=== PATIENT | female | born 1960 | race Caucasian/White ===

== ENCOUNTER 2016-02-23 18:51 | Emergency (ER) | payer OTHER ==
[~2016-02-23] VITALS: Ht 172.7 cm; Wt 136.1 kg
[~2016-02-23 18:51] MED LIST: ADVIL200 MG PO; ALLOPURINOL100 MG PO; AMARYL4 MG PO; AMITRIPTYLINE100 M1 PO; AMOXICILLIN500 M3 PO; BC1 POW PO; BUPROPION HCL150 M2 PO; BUPROPION HYDR150 M1 PO; BUPROPION HYDR300 M1 PO; CIPRO500 M1 PO; FLEXERIL10 MG PO; GABAPENTIN300 MG PO; GLUMETZA1000 MG PO; HUMALOG100 U/ML SC; HYDROCODON-ACE1 EAC2 PO; HYDROCODONE/ACE1 TA1 PO; LANTUS SOLOS100 U/ML SC; LANTUS100 UNIT/1 SC; LEVOTHYROXINE0.05 M1 PO; LEVOTHYROXINE75 MCG PO; LISINOPRIL AND1 TA1 PO; LORAZEPAM2 MG PO; MOXIFLOXACIN H400 M1 PO; PRAVASTATIN SOD40 MG PO; TAMIFLU 75MG75 MG PO; VITAMIN D250000 UNIT PO; WELLBUTRIN XL300 M2 PO
[2016-02-23 18:57] VITALS: BP 145/74
--- NOTE | 2016-02-23 19:46 | ED UPPER/LOWER EXTREMITY COMPL ---
History of Present Illness General Chief Complaint: Lower Extremity Injury Stated Complaint: SENT IN BY LARA TO HAVE CAST CUT OFF Source: patient, old records Exam Limitations: no limitations Vital Signs & Intake/Output Vital Signs & Intake/Output Vital Signs Date Time Temp Pulse Resp B/P Pulse O2 O2 Flow FiO2 Ox Delivery Rate 02/22 1857 97.2 80 18 145/74 97 Room Air Room Air Allergies Coded Allergies: latex (Mild, RASH 05/30/15) Reconcile Medications Allopurinol 100 MG TAB 1 TAB PO DAILY GOUT (Reported) Amitriptyline Hydrochloride (Amitriptyline HCl) 100 MG TAB 1 TAB PO AT BEDTIME PRN SLEEP (Reported) Bupropion HCl (Wellbutrin XL) 300 MG TAB.ER.24H 1 TAB PO DAILY DEPRESSION ( Reported) Ergocalciferol (Vitamin D2) (Vitamin D2) 50,000 UNIT CAPSULE 1 CAP PO Q10D SUPPLEMENT (Reported) Gabapentin 300 MG CAPSULE 2 CAP PO AT BEDTIME NEUROPAHY (Reported) Glimepiride (Amaryl) 4 MG TAB 1 TAB PO BID DIABETES (Reported) Hydrocodone/Acetaminophen (Hydrocodon-Acetaminophen 5-325) 5 MG-325 MG TABLET 1-2 TAB PO Q4-6 PRN PRN pain Insulin Lispro, Recombinant (Humalog) 100 U/ML JB DIABETES (Reported) Insulin-Lantus (Lantus) 100 UNIT/ML VIAL 45 UNITS SC BID DM (Reported) Levothyroxine Sodium 75 MCG TABLET 1 TAB PO DAILY THYROID (Reported) LISINOPRIL/HYDROCHLOROTHIAZIDE (Lisinopril-Hctz 20-12.5 MG Tab) 1 TAB TAB 1 TAB PO DAILY HIGH BLOOD PRESSURE (Reported) Lorazepam 2 MG TABLET 0.5-1 TAB PO TID PRN ANXIETY (Reported) Pravastatin Sodium 40 MG TAB 1 TAB PO DAILY HIGH CHOLESTEROL (Reported) Triage Note: TRIAGE: 55 Y/O FEMALE REPORTS WAS SENT BY DR BERMUDEZ FOR HARD CAST REMOVAL FROM RIGHT FOOT. REPORTS PAIN TO RIGHT TOES, RIGHT HEEL. "I CAN'T GET COMFORTABLE WITH THE CAST." CAST SCHEDULED TO BE REMOVED 03/18/2016. Triage Nurses Notes Reviewed? yes HPI: Patient is 16 days postop right lower extremity foot surgery, 2 incisions, it appears though she had a bunion type surgery and Jennifer's deformity surgery however patient is unsure, she has 2 incisions one of the dorsum of the foot 1 at the posterior heel/Achilles region. She had been doing well postoperatively, was changed over to a cast last week however She feels is too tight, she is getting chronic swelling in her foot and cannot tolerate the cast any longer. She is extremity frustrated with the cast. She states that the orthopedist operations business partner told her to come in to have the cast removed. She states in the office she was offered a boot in the left have a cast instead but would now like to use the boot. She is not weightbearing. She has no numbness or weakness Past History Travel History Traveled to [place] past 21 day No Medical History Any Pertinent Medical History? 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 No Review of Systems Review of Systems Constitutional: Reports: see HPI. EENTM: Reports: no symptoms. Respiratory: Reports: no symptoms. Cardiovascular: Reports: no symptoms. Gastrointestinal/Abdominal: Reports: no symptoms. Genitourinary: Reports: no symptoms. Musculoskeletal: Reports: no symptoms. Skin: Reports: no symptoms. Neurological/Psychological: Reports: no symptoms. Hematologic/Endocrine: Reports: no symptoms. Immunological: Reports: no symptoms. All Other Systems: Reviewed and Negative Physical Exam Physical Exam General Appearance: well developed/nourished Comments: Well-developed well-nourished no apparent distress. HEENT: Atraumatic, extraocular motion intact Neck: Supple, no lymphadenopathy Back: Nontender Respiratory: No respiratory distress Extremities: No edema, full range of motion Neuro: Alert and oriented x3 Psych: Mood affect normal, normal memory normal judgment. Skin: Warm and dry, no rash on exposed skin Right lower extremity, short leg cast applied in good position and in good condition, neurovascularly intact Progress Differential Diagnosis: compartment syndrome, infection Plan of Care: Orders Procedure Date/time Status Durable Medical Equipment 02/22 1937 Active Comments: Short leg cast in the right lower extremity was removed by myself using a cast saw without difficulty. The skin is intact, there is mild swelling and mild resolving ecchymosis throughout the ankle and foot region, he 2 incisions 1 the dorsum of the foot and mild posterior heel region are healing well without signs of infection and no discharge or drainage. She was placed in a well fitting pneumatic boot by myself, remains nonweightbearing, she is stable for discharge home. Departure Departure Disposition: HOME OR SELF CARE Condition: Stable Clinical Impression Primary Impression: Cast removal Referrals: BERTO ROMO,EVA ROY (PCP/Family) Referred to [facility] as new patient No Additional Instructions: Remain nonweightbearing, follow-up as scheduled with orthopedist Departure Forms: Customer Survey General Discharge Information
== END 2016-02-23 20:04 ==
LOC: ERH 18:51
DX: Z44.8 Encounter for fitting and adjustment of other external prosthetic devices (principal)
CPT/HCPCS: 99282

== ENCOUNTER 2016-05-08 18:53 | Emergency (ER) | payer OTHER ==
[~2016-05-08] VITALS: Ht 172.7 cm; Wt 140.6 kg
[2016-05-08] MEDS ORDERED: BUPROPION XL300 M1 PO (19:36)
--- NOTE | 2016-05-08 19:36 | ED CARDIAC/CP/PALPITATIONS ---
History of Present Illness General Chief Complaint: General Adult Stated Complaint: "I HAVE HEART PALPATAIONS" Source: patient, family Exam Limitations: no limitations Vital Signs & Intake/Output Vital Signs & Intake/Output Vital Signs Date Time Temp Pulse Resp B/P Pulse O2 O2 Flow FiO2 Ox Delivery Rate 05/08 2222 82 18 180/82 98 Room Air 05/088 87 16 173/96 96 Room Air 05/08 1905 97.9 89 18 179/108 96 Room Air Allergies Coded Allergies: latex (Mild, RASH 05/30/15) Reconcile Medications Acetaminophen 500 MG TABLET 4 TAB PO PRN PAIN (Reported) Allopurinol 100 MG TABLET 1 TAB PO DAILY URIC ACID (Reported) Amitriptyline HCl 100 MG TABLET 1 TAB PO QHS SLEEP (Reported) Bupropion HCl (Bupropion XL) 300 MG TAB.ER.24H 1 TAB PO DAILY MENTAL HEALTH ( Reported) Ergocalciferol (Vitamin D2) (Vitamin D2) 50,000 UNIT CAPSULE 1 CAP PO Q10D SUPPLEMENT (Reported) Gabapentin 600 MG TABLET 1 TAB PO BID NERVE PAIN (Reported) Glimepiride 4 MG TABLET 1 TAB PO BID DM (Reported) Ibuprofen 200 MG CAPSULE 4 CAP PO PRN PAIN (Reported) Insulin Glargine,Hum.rec.anlog (Lantus Solostar) 100 UNIT/ML (3 ML) INSULN.PEN 45 UNIT SC BID DM (Reported) Insulin Lispro (Humalog) 100 UNIT/ML CARTRIDGE DM (Reported) Levothyroxine Sodium 75 MCG TABLET 1 TAB PO DAILY THYROID (Reported) Lisinopril/Hydrochlorothiazide (Lisinopril-Hctz 20-12.5 MG Tab) 20 MG-12.5 MG TABLET 1 TAB PO DAILY BP (Reported) Lorazepam 2 MG TABLET 1 TAB PO TID PRN ANXIETY (Reported) Pravastatin Sodium 40 MG TABLET 1 TAB PO QPM CHOLESTEROL (Reported) Sulfamethoxazole/Trimethoprim (Bactrim Ds Tablet) 800 MG-160 MG TABLET 1 TAB PO BID UTI Tramadol HCl 50 MG TABLET 1 TAB PO BIDP PRN PAIN Triage Note: TRIAGE: PT EXPERIENCING FEELINGS OF FLUTTERING AND FLIPS IN HER CHEST X1 WEEK. DENIES DYSPNEA DURING THESE EPISODES. USED PULSE OX AT HOME AND SAW HEART RATE RANGE FROM 90'S-110'S. REPORTS MANY STRESSORS RECENTLY. HYPERTENSIVE IN TRIAGE 179/108 AND STATES SHE DID NOT TAKE HER LISINOPRIL TODAY. AAOX3. Triage Nurses Notes Reviewed? yes Onset: Gradual Duration: week(s): (1), waxing and waning Timing: recent history Location: PAIN IN BOTH FEET, PALPITATIONS IN CHEST, URINARY FREQUENCY Activities at Onset: none Associated Symptoms: PALPITATIONS, FEET PAIN, DYSURIA HPI: 55-year-old female who presents to the ER chief complaint of palpitations from her dentist office. She was there for a cleaning which was done after a long time. They reported that she had loss which has been giving her some chronic pain. She also reports palpitations on and off throughout the week. She states that she didn't feel anxious at the time. Patient appears visibly anxious. She states that she's been having some discomfort with palpitations on and off throughout the whole week. 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 Denies any radiation of the pain. History of May thyroid is a minute was increased to 75 mics of Synthroid within the past 1 year. She is a nonsmoker nondrinker. Past History Travel History Traveled to [place] past 21 day No Medical History Any Pertinent Medical History? 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 No Review of Systems Review of Systems Constitutional: Denies: chills, fever. EENTM: Reports: no symptoms. Respiratory: Denies: cough, short of breath, sputum production. Cardiovascular: Reports: chest pain, palpitations. Denies: peripheral edema, syncope. GI: Denies: abdominal pain, nausea. Genitourinary: Reports: dysuria, frequency. Musculoskeletal: Reports: see HPI (BILATERAL FEET PAIN). Skin: Reports: no symptoms. Neurological/Psychological: Reports: no symptoms. Hematologic/Endocrine: Reports: polyuria. Denies: bruising, bleeding, polydipsia. Immunologic/Allergic: Denies: splenectomy. All Other Systems: Reviewed and Negative Physical Exam Physical Exam General Appearance: well developed/nourished, alert, awake, anxious, mild distress, obese Head: atraumatic, normal appearance Eyes: Bilateral: normal appearance, PERRL, EOMI. Ears, Nose, Throat: normal pharynx, hearing grossly normal Neck: normal inspection, supple, full range of motion Respiratory: normal breath sounds, chest non-tender, no respiratory distress Cardiovascular: regular rate/rhythm Peripheral Pulses: 2+ radial (R), 2+ radial (L) Gastrointestinal: normal bowel sounds, soft, non-tender Back: normal inspection, normal range of motion Extremities: normal inspection, normal range of motion, no edema Skin: intact, normal color, warm/dry Core Measures ACS in differential dx? Yes ASA ordered for poss ACS? No-ACS ruled out Severe Sepsis Present: No Septic Shock Present: No Progress Differential Diagnosis: AMI, atrial fibrillation, costochondritis, pulmonary embolism, unstable angina, HYPERTHYROIDISM, ANXIETY, NEUROPATHY, UTI, CHRONIC PAIN Plan of Care: Orders Procedure Date/time Status Add-on Test (ER Only) 05/08 2229 Active URINALYSIS 05/08 1957 Complete THYROID STIMULATING HORMONE 05/08 1949 Complete TROPONIN LEVEL 05/08 1949 Complete FREE T4 05/08 1949 Complete COMPREHENSIVE METABOLIC PANEL 05/08 1949 Complete CBC WITHOUT DIFFERENTIAL 05/08 1949 Complete EKG 05/08 1854 Active Current Medications Sig/Anup Start time Last Medication Dose Stop Time Status Admin Trimethoprim/ 1 TAB ONCE ONE 05/08 2244 UNVr Sulfamethoxazole 05/08 2245 (Bactrim DS) Gabapentin 600 MG ONCE ONE 05/08 2229 UNVr (Neurontin) 05/08 2230 Laboratory Tests 05/08/160: Urine Color YEL, Urine Clarity CLEAR, Urine pH 6.0, Ur Specific [place] 1.020, Urine Protein NEG, Urine Ketones NEG, Urine Nitrite NEG, Urine Bilirubin NEG, Urine Urobilinogen 0.2, Ur Leukocyte Esterase TRACE H, Ur Microscopic SEDIMENT EXAMINED, Urine RBC RARE, Urine WBC 10-15 H, Ur Epithelial Cells MANY H, Urine Bacteria FEW H, Urine Hemoglobin NEG, Urine Glucose NEG 05/08/162109: Anion Gap 10, Estimated GFR 46 L, BUN/Creatinine Ratio 21.7, Glucose 160 H, Calcium 9.2, Total Bilirubin 0.4, AST 20, ALT 41, Alkaline Phosphatase 99, Troponin I < 0.01, Total Protein 7.3, Albumin 3.9, Globulin 3.4, Albumin/ Globulin Ratio 1.1, TSH 1.080, Free T4 1.17, CBC w Diff NO MAN DIFF REQ, RBC 4.34, MCV 85.2, MCH 28.0, RDW 13.8, MPV 7.7, Gran % 68.5, Lymphocytes % 22.0, Monocytes % 5.8, Eosinophils % 3.2, Basophils % 0.5, Absolute Granulocytes 3.9, Absolute Lymphocytes 1.3, Absolute Monocytes 0.3, Absolute Eosinophils 0.2, Absolute Basophils 0, PUBS MCHC 32.8 L W/U WNL EXCEPT FOR URINALYSIS. PATIENT REQUESTING SOMETHING FOR CHRONIC PAIN. (RAVIN GUERIN,PRASANNA) Diagnostic Imaging: Viewed by Me: Radiology Read. Discussed w/RAD: Radiology Read. Initial ED EKG: NSR Rhythm Strip: normal sinus rhythm Comments: PATIENT: ESTEFANI ONOFRE PRESENT AGE: 55 PATIENT ACCOUNT NO: [id number] : 56 LOCATION: [facility] ORDERING PHYSICIAN: PRASANNA ALICIA MD SERVICE DATE: 05/08/16 EXAM TYPE: RAD - XRY-CHEST XRAY, PA AND LATERAL EXAMINATION: XR CHEST CLINICAL INFORMATION: Cough, shortness of breath COMPARISON: Chest x-ray 04/30/2015 TECHNIQUE: 2 views of the chest were obtained. FINDINGS: Lungs are clear. No pulmonary vascular congestion. No infiltrate or pleural effusion. The heart size is normal. The cardiac and mediastinal contours are normal. There are multilevel degenerative changes of dorsal spine. IMPRESSION: No acute abnormality of the chest. DICTATED BY: JUANITO GERARD MD DATE/TIME DICTATED:05/08/162033 [employer] ATTENDANT:DESTINEE DATE/TIME TRANSCRIBED:05/08/162033 CONFIDENTIAL, DO NOT COPY WITHOUT APPROPRIATE AUTHORIZATION. <Electronically signed in Other Vendor System> SIGNED BY: JUANITO GERARD MD 05/08/162037 Departure Departure Time of Disposition: 2152 Disposition: HOME OR SELF CARE Condition: Stable Clinical Impression Primary Impression: Palpitation Secondary Impressions: Chronic pain, CKD (chronic kidney disease), UTI (urinary tract infection) Referrals: BERTO ROMO,EVA ROY (PCP/Family) ETHEL GUERIN PhD,VIBHA Zaman Additional Instructions: Follow-up with your doctor in the office as well as with the bar roller that is listed. Return to the ER for any changing or worsening symptoms. Take the bactirm as directed. Departure Forms: Customer Survey General Discharge Information Prescriptions: Current Visit Scripts Tramadol HCl 1 TAB PO BIDP PRN PAIN #10 TAB Sulfamethoxazole/Trimethoprim (Bactrim Ds Tablet) 1 TAB PO BID #13 TAB Critical Care Note Critical Care Note Critical Care Time: non-applicable
[2016-05-08] MEDS ORDERED: VITAMIN D250000 UNIT PO (19:37)
[2016-05-08] MEDS ORDERED: LORAZEPAM2 M1 PO (19:37)
[2016-05-08] MEDS ORDERED: LISINOPRIL-HCT1 EACH PO (19:37)
[2016-05-08] MEDS ORDERED: PRAVASTATIN SOD40 M2 PO (19:38)
[2016-05-08] MEDS ORDERED: GLIMEPIRIDE4 M1 PO (19:38)
[2016-05-08] MEDS ORDERED: LEVOTHYROXINE75 MCG PO (19:38)
[2016-05-08] MEDS ORDERED: LANTUS SOL100 UNIT/1 SC (19:38)
[2016-05-08] MEDS ORDERED: AMITRIPTYLINE100 M2 PO (19:39)
[2016-05-08] MEDS ORDERED: HUMALOG100 UNIT/1 SC (19:39)
[2016-05-08] MEDS ORDERED: GABAPENTIN600 M1 PO (19:40)
[2016-05-08] MEDS ORDERED: ALLOPURINOL100 M1 PO (19:40)
[2016-05-08] MEDS ORDERED: ACETAMINOPHEN500 M4 PO (19:41)
[2016-05-08] MEDS ORDERED: IBUPROFEN200 M3 PO (19:41)
--- NOTE | 2016-05-08 20:38 | RADIOLOGY REPORT ---
EXAMINATION: XR CHEST CLINICAL INFORMATION: Cough, shortness of breath COMPARISON: Chest x-ray 04/30/2015 TECHNIQUE: 2 views of the chest were obtained. FINDINGS: Lungs are clear. No pulmonary vascular congestion. No infiltrate or pleural effusion. The heart size is normal. The cardiac and mediastinal contours are normal. There are multilevel degenerative changes of dorsal spine. IMPRESSION: No acute abnormality of the chest.
[2016-05-08 21:22] LABS: ABSOLUTE BASOPHIL COUNT 0 /CUMM (0.0-0.2); ABSOLUTE EOSINOPHIL COUNT 0.2 /CUMM (0.0-0.7); ABSOLUTE GRANULOCYTE CT 3.9 /CUMM (1.4-6.5); ABSOLUTE LYMPH COUNT 1.3 /CUMM (1.2-3.4); ABSOLUTE MONOCYTE COUNT 0.3 /CUMM (0.10-0.60); BASOPHIL % 0.5 % (0.0-2.0); EOSINOPHIL % 3.2 % (0-5); GRANULOCYTE % 68.5 % (42.2-75.2); HEMATOCRIT 36.9 % (37-47); MEAN CORPUSCULAR HGB CONC 32.8 G/DL (33.0-37.0); MEAN CORPUSCULAR VOLUME 85.2 FL (81.0-99.0); MEAN PLATELET VOLUME 7.7 FL (7.4-10.4); PLATELET COUNT 263 /CUMM (130-400); RBC DISTRIBUTION WIDTH 13.8 % (11.5-14.5); RED BLOOD CELL CT 4.34 /CUMM (4.20-5.40); WHITE BLOOD CELL COUNT 5.7 /CUMM (4.8-10.8)
[2016-05-08 22:22] VITALS: BP 180/82
[2016-05-08] MEDS ORDERED: TRAMADOL HCL50 M1 PO ×2 (22:43→22:44)
[2016-05-08] MEDS ORDERED: BACTRIM DS TAB1 EACH PO (22:44)
== END 2016-05-08 23:22 ==
LOC: ERH 18:53
PROVIDERS: Emergency Medicine
DX: R00.2 Palpitations (principal); G89.29 Other chronic pain; N18.9 Chronic kidney disease, unspecified; N39.0 Urinary tract infection, site not specified
CPT/HCPCS: 81001; 87086; 93005; 93010

== ENCOUNTER 2016-06-29 20:06 | Emergency (ER) | payer OTHER ==
[~2016-06-29] VITALS: Ht 172.7 cm; Wt 140.6 kg
[~2016-06-29 20:06] MED LIST changes: +ACETAMINOPHEN500 M4 PO; +ALLOPURINOL100 M1 PO; +AMITRIPTYLINE100 M2 PO; +BACTRIM DS TAB1 EACH PO; +BUPROPION XL300 M1 PO; +GABAPENTIN600 M1 PO; +GLIMEPIRIDE4 M1 PO; +HUMALOG100 UNIT/1 SC; +IBUPROFEN200 M3 PO; +LANTUS SOL100 UNIT/1 SC; +LISINOPRIL-HCT1 EACH PO; +LORAZEPAM2 M1 PO; +PRAVASTATIN SOD40 M2 PO; +TRAMADOL HCL50 M1 PO
[2016-06-29 20:27] VITALS: BP 150/85
[2016-06-29] MEDS ORDERED: OXYCODONE HCL5 M1 PO (20:41)
--- NOTE | 2016-06-29 20:55 | ED ANKLE/FOOT INJURY COMPLAINT ---
History of Present Illness General Chief Complaint: Foot or Ankle Injury Stated Complaint: RIGHT HEEL PAIN S/P FALL Source: patient Exam Limitations: no limitations Vital Signs & Intake/Output Vital Signs & Intake/Output Vital Signs Date Time Temp Pulse Resp B/P B/P Pulse O2 O2 Flow FiO2 Mean Ox Delivery Rate 06/29 2026 98.7 93 16 150/85 98 Room Air Allergies Coded Allergies: latex (Mild, RASH 05/30/15) Reconcile Medications Allopurinol 100 MG TABLET 1 TAB PO DAILY URIC ACID (Reported) Amitriptyline HCl 100 MG TABLET 1 TAB PO QHS SLEEP (Reported) Bupropion HCl (Bupropion XL) 300 MG TAB.ER.24H 1 TAB PO DAILY MENTAL HEALTH ( Reported) Ergocalciferol (Vitamin D2) (Vitamin D2) 50,000 UNIT CAPSULE 1 CAP PO Q10D SUPPLEMENT (Reported) Gabapentin 600 MG TABLET 1 TAB PO BID NERVE PAIN (Reported) Glimepiride 4 MG TABLET 1 TAB PO BID DM (Reported) Insulin Glargine,Hum.rec.anlog (Lantus Solostar) 100 UNIT/ML (3 ML) INSULN.PEN 45 UNIT SC BID DM (Reported) Insulin Lispro (Humalog) 100 UNIT/ML CARTRIDGE DM (Reported) Levothyroxine Sodium 75 MCG TABLET 1 TAB PO DAILY THYROID (Reported) Lisinopril/Hydrochlorothiazide (Lisinopril-Hctz 20-12.5 MG Tab) 20 MG-12.5 MG TABLET 1 TAB PO DAILY BP (Reported) Lorazepam 2 MG TABLET 1 TAB PO TID PRN ANXIETY (Reported) Oxycodone HCl 5 MG TABLET 1 TAB PO QHS PAIN (Reported) Oxycodone HCl (Roxicodone) 5 MG TABLET 1 TAB PO BID PRN PAIN Pravastatin Sodium 40 MG TABLET 1 TAB PO QPM CHOLESTEROL (Reported) Triage Note: TRIAGE: ON WEDNESDAY, PT FELL THROUGH A BENCH SHE WAS STANDING ON, APPROX 2 FOOT FALL AND INJURED R ANKLE AND HEEL, SIGNIFICANT SWELLING AND SLIGHT DEFORMITY NOTED. +PULSES. PT REFUSING PAIN MEDS OFFERED IN TRIAGE BECAUSE OF OTHER HEALTH ISSUES. CAN ONLY TAKE OXYCODONE PER HER ORTHOPEDIC. DID NOT CALL HER ORTHO REGARDING THIS PROBLEM. HER ORTHO REGARDING THIS PROBLEM. 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 CRYING IN TRIAGE. Triage Nurses Notes Reviewed? yes HPI: This patient is a 55-year-old female who presented to the emergency department today for evaluation of right heel pain status post fall. The patient reported that she was standing on a bench and it broke. She reported that she fell through it and after that time has been having 8 out of 10 pain in her right heel and right ankle. The patient reported that she is having difficulty ambulating on it. She reported that the pain is nonradiating and constant. She reported that she can only take oxycodone due to pre-existing comorbidities. The patient denied any knee or hip pain. She denied hitting her head or losing consciousness. No palliative factors. (NENA FUENTES PA-C) Past History Travel History Traveled to [place] past 21 day No Medical History Any Pertinent Medical History? 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 No (NENA FUENTES PA-C) Review of Systems Review of Systems Constitutional: Reports: no symptoms. EENTM: Reports: no symptoms. Respiratory: Reports: no symptoms. Cardiovascular: Reports: no symptoms. GI: Reports: no symptoms. Musculoskeletal: Reports: see HPI. Skin: Reports: no symptoms. Neurological/Psychological: Reports: no symptoms. All Other Systems: Reviewed and Negative (NENA FUENTES PA-C) Physical Exam Physical Exam Leg/Knee/Thigh Left: normal range of motion, normal inspection Comments: Well-developed well-nourished person in no acute distress HEENT: Head normocephalic, moist mucous membranes Neck: Supple, no lymphadenopathy Back: Normal inspection Respiratory: No respiratory distress. Speaking in full sentences Right foot/ankle: Mild amount of edema to the posterior aspect of the heel. Full range of motion at the ankle. Tenderness to palpation over the calcaneus and Achilles tendon. Dorsalis pedis and posterior tibialis pulses 2+ and strong. No overlying ecchymosis or erythema. Capillary refill less than 2 seconds Neuro: Alert and oriented x3 Psych: Mood affect normal, normal memory normal judgment. Skin: Warm and dry, no rash on exposed skin (ALFREDO ROJAS,NENA) Progress Differential Diagnosis: septic arthritis, fracture, dislocation, sprain, contusion, compartmental syndrome, BONE SPUR, TENDON INJURY Plan of Care: Orders Procedure Date/time Status Durable Medical Equipment 06/30 2143 Active Diagnostic Imaging: Viewed by Me: Radiology Read. Discussed w/RAD: Radiology Read. Radiology Impression: PATIENT: ESTEFANI ONOFRE PRESENT AGE: 55 PATIENT ACCOUNT NO: [id number] : 56 LOCATION: [facility] ORDERING PHYSICIAN: NENA FUENTES PA-C SERVICE DATE: 06/29/16 EXAM TYPE: RAD - XRY-ANKLE 3 OR MORE VIEWS R; XRY-HEEL, RIGHT EXAMINATION: XR ANKLE, RIGHT XR CALCANEUS, RIGHT CLINICAL INFORMATION: Right ankle and heel pain and swelling. Evaluate for a fracture. COMPARISON: No relevant prior studies are available for comparison. TECHNIQUE: AP, mortise, and lateral views of the right ankle were obtained. Lateral and axial views of the right calcaneus were obtained. FINDINGS: RIGHT ANKLE: No fracture or dislocation. The ankle mortise is well-maintained. No osseous erosion. Mild spurring at the dorsal talonavicular joint. No significant ankle joint effusion. Focal soft tissue thickening with associated irregular calcification in the region of the distal Achilles, likely indicating underlying tendinopathy. RIGHT HEEL: No fracture. Prominent plantar calcaneal spur. Lobulated calcification in the region of the proximal plantar fascia, likely representing chronic plantar fasciitis. IMPRESSION: RIGHT ANKLE: Soft tissue thickening with associated irregular calcification in the region of the distal Achilles, likely indicating underlying tendinopathy. No fracture. RIGHT HEEL: Prominent plantar calcaneal spur and calcification in the region of the plantar fascia, likely representing chronic plantar fasciitis. No fracture. DICTATED BY: SUHAIL RAMIREZ MD DATE/TIME DICTATED:06/29/162116 TICKET PRINTER:DESTINEE DATE/TIME TRANSCRIBED:06/29/162116 CONFIDENTIAL, DO NOT COPY WITHOUT APPROPRIATE AUTHORIZATION. <Electronically signed in Other Vendor System> SIGNED BY: SUHAIL RAMIREZ MD 06/29/162128 (ALFREDO ROJAS,NENA) Departure Departure Disposition: HOME OR SELF CARE Condition: Stable Clinical Impression Primary Impression: Bone spur Referrals: EVA GOMEZ (PCP/Family) Additional Instructions: Please follow-up with your orthopedic as well as with your primary care physician. Elevate and ice the affected area. You may use the walking boot provided to you for extra support. Take medication for pain as prescribed. Departure Forms: Customer Survey General Discharge Information Prescriptions: Current Visit Scripts Oxycodone HCl (Roxicodone) 1 TAB PO BID PRN PAIN #6 TAB (NENA FUENTES PA-C) PA/OIL FIELD OPERATOR Co-Sign Statement Statement: ED Attending supervision documentation- [] I saw and evaluated the patient. I have also reviewed all the pertinent lab results and diagnostic results. I agree with the findings and the plan of care as documented in the PA's/OIL FIELD OPERATOR's documentation. [X] I have reviewed the ED Record and agree with the PA's/OIL FIELD OPERATOR's documentation. [] Additions or exceptions (if any) to the PAs/OIL FIELD OPERATOR's note and plan are summarized below: [] (KATIE GUERIN,DEANN Jordan)
--- NOTE | 2016-06-29 21:29 | RADIOLOGY REPORT ---
EXAMINATION: XR ANKLE, RIGHT XR CALCANEUS, RIGHT CLINICAL INFORMATION: Right ankle and heel pain and swelling. Evaluate for a fracture. COMPARISON: No relevant prior studies are available for comparison. TECHNIQUE: AP, mortise, and lateral views of the right ankle were obtained. Lateral and axial views of the right calcaneus were obtained. FINDINGS: RIGHT ANKLE: No fracture or dislocation. The ankle mortise is well-maintained. No osseous erosion. Mild spurring at the dorsal talonavicular joint. No significant ankle joint effusion. Focal soft tissue thickening with associated irregular calcification in the region of the distal Achilles, likely indicating underlying tendinopathy. RIGHT HEEL: No fracture. Prominent plantar calcaneal spur. Lobulated calcification in the region of the proximal plantar fascia, likely representing chronic plantar fasciitis. IMPRESSION: RIGHT ANKLE: Soft tissue thickening with associated irregular calcification in the region of the distal Achilles, likely indicating underlying tendinopathy. No fracture. RIGHT HEEL: Prominent plantar calcaneal spur and calcification in the region of the plantar fascia, likely representing chronic plantar fasciitis. No fracture.
[2016-06-29] MEDS ORDERED: ROXICODONE5 M1 PO (21:43)
== END 2016-06-29 22:03 ==
LOC: ERH 20:06
DX: M77.31 Calcaneal spur, right foot (principal)
CPT/HCPCS: 73610-RT; 73650-RT

== ENCOUNTER 2017-09-04 21:33 | Emergency (ER) | payer OTHER ==
[~2017-09-04] VITALS: Ht 175.3 cm; Wt 136.1 kg
[~2017-09-04 21:33] MED LIST changes: +KEFLEX500 M1 PO; +OXYCODONE HCL5 M1 PO; +ROXICODONE5 M1 PO
--- NOTE | 2017-09-04 23:17 | ED GI/GU/ABDOMINAL COMPLAINT ---
See Addendum History of Present Illness General Chief Complaint: General Adult Stated Complaint: FEVER 101.9 AT HOME, UTI? Source: patient, old records Exam Limitations: no limitations Vital Signs & Intake/Output Vital Signs & Intake/Output Vital Signs Date Time Temp Pulse Resp B/P B/P Pulse O2 O2 Flow FiO2 Mean Ox Delivery Rate 09/05 0122 99.0 90 18 110/54 94 Room Air 09/05 0015 Room Air 09/04 2218 102.0 09/04 2217 102.9 09/04 2137 100.8 111 18 166/89 97 Room Air ED Intake and Output 09/05 0000 09/04 1200 Intake Total Output Total Balance Patient 300 lb Weight Weight Reported by Patient Measurement Method Allergies Coded Allergies: latex (Mild, RASH 05/30/15) Reconcile Medications Allopurinol 100 MG TABLET 1 TAB PO DAILY URIC ACID (Reported) Amitriptyline HCl 100 MG TABLET 1 TAB PO QHS SLEEP (Reported) Bupropion HCl (Bupropion XL) 300 MG TAB.ER.24H 1 TAB PO DAILY MENTAL HEALTH ( Reported) Cephalexin (Keflex) 500 MG CAPSULE 1 CAP PO BID PRN CELLULITIS Ciprofloxacin HCl (Cipro) 500 MG TABLET 1 TAB PO BID PYELONEPHRITIS Ergocalciferol (Vitamin D2) (Vitamin D2) 50,000 UNIT CAPSULE 1 CAP PO Q10D SUPPLEMENT (Reported) Gabapentin 600 MG TABLET 1 TAB PO BID NERVE PAIN (Reported) Glimepiride 4 MG TABLET 1 TAB PO BID DM (Reported) Insulin Glargine,Hum.rec.anlog (Lantus Solostar) 100 UNIT/ML (3 ML) INSULN.PEN 45 UNIT SC BID DM (Reported) Insulin Lispro (Humalog) 100 UNIT/ML CARTRIDGE DM (Reported) Levothyroxine Sodium 75 MCG TABLET 1 TAB PO DAILY THYROID (Reported) Lisinopril/Hydrochlorothiazide (Lisinopril-Hctz 20-12.5 MG Tab) 20 MG-12.5 MG TABLET 1 TAB PO DAILY BP (Reported) Lorazepam 2 MG TABLET 1 TAB PO TID PRN ANXIETY (Reported) Oxycodone HCl 5 MG TABLET 1 TAB PO QHS PAIN (Reported) Oxycodone HCl (Roxicodone) 5 MG TABLET 1 TAB PO BID PRN PAIN Pravastatin Sodium 40 MG TABLET 1 TAB PO QPM CHOLESTEROL (Reported) Sulfamethoxazole/Trimethoprim (Bactrim Ds Tablet) 800 MG-160 MG TABLET 1 TAB PO BID CELLULITIS Triage Note: REPORTS FEVER AND BURNING WITH URINATION SINCE THIS AM. Triage Nurses Notes Reviewed? yes ? N Is pt currently ? No HPI: 57F PMH hypertension, diabetes, neuropathy,gout, anxiety, ectopic pregnancies requiring surgery, CKD stage 3, recurrent UTIs, cholecystectomy,SAMAAR with 2 days of worsening dysuria, fever, chills, and left flank pain. Symptoms consistent with prior episodes of pyelonephritis. REports diaphoresis, decreased appetite, decreased PO intake. Denies headache, stiff neck, confusion, sore throat, cough , dyspnea, chest pain, abdominal pain, diarrhea. (Mariaelena Ballard MD) Past History Travel History Traveled to [place] past 21 day No Medical History Any Pertinent Medical History? 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 No (Mariaelena Ballard MD) Review of Systems Review of Systems Constitutional: Reports: no symptoms. EENTM: Reports: no symptoms. Respiratory: Reports: no symptoms. Cardiovascular: Reports: no symptoms. GI: Reports: no symptoms. Genitourinary: Reports: no symptoms. Musculoskeletal: Reports: no symptoms. Skin: Reports: no symptoms. Neurological/Psychological: Reports: no symptoms. Hematologic/Endocrine: Reports: no symptoms. Immunologic/Allergic: Reports: no symptoms. All Other Systems: Reviewed and Negative (Mariaelena Ballard MD) Physical Exam Physical Exam General Appearance: well developed/nourished, mild distress, diaphoretic Head: atraumatic, normal appearance Eyes: Bilateral: normal appearance, PERRL, EOMI. Ears, Nose, Throat, Mouth: hearing grossly normal, moist mucous membrane Neck: normal inspection, supple, full range of motion Respiratory: normal breath sounds, no respiratory distress Cardiovascular: regular rate/rhythm Gastrointestinal: soft, non-tender Back: normal inspection, CVA tenderness (L) Extremities: normal range of motion Neurologic/Psych: awake, alert, oriented x 3, normal mood/affect Skin: intact, normal color, warm/dry Core Measures ACS in differential dx? No Sepsis Present: Yes Sepsis Focused Exam Completed? Yes (Nellie GUERIN,Mariaelena) Progress Differential Diagnosis: AAA, AMI, appendicitis, biliary colic, bowel obstruction , colon cancer, cholecystitis, diverticulitis, ectopic , endometritis, esophageal varices, gastritis, hepatitis, hernia, hemorrhoids, ischemic bowel, inflamm bowel dis, intrauterine , kidney stone, Ana Maria-Ingrid tear, ovarian cyst, ovarian torsion, pancreatitis, PID/cervicitis, peptic ulcer, PUD/ GERD, perforated viscous, SBO, threatened AB, UTI/pyelo Plan of Care: Orders Procedure Date/time Status Add-on Test (ER Only) 09/05 0245 Active Add-on Test (ER Only) 09/05 0023 Active CULTURE,URINE 09/04 2313 Active BLOOD CULTURE 09/04 231 Active LACTIC ACID 09/04 231 Complete COMPREHENSIVE METABOLIC PANEL 09/04 2313 Complete CBC WITHOUT DIFFERENTIAL 09/04 2313 Complete URINALYSIS 09/04 2139 Complete Laboratory Tests 09/05/17 0214: Lactic Acid Cancelled 09/05/17 0003: Anion Gap 11, Estimated GFR 51 L, BUN/Creatinine Ratio 26.4 H, Glucose 71, Lactic Acid 1.2, Calcium 9.3, Total Bilirubin 0.4, AST 22, ALT 35, Alkaline Phosphatase 95, Total Protein 7.1, Albumin 3.9, Globulin 3.2, Albumin/Globulin Ratio 1.2, CBC w Diff NO MAN DIFF REQ, RBC 4.19 L, MCV 85.4, MCH 29.2, MCHC 34.2, RDW 12.9, MPV 7.3 L, Gran % 79.4 H, Lymphocytes % 13.9 L, Monocytes % 4.9, Eosinophils % 1.5, Basophils % 0.3, Absolute Granulocytes 6.4, Absolute Lymphocytes 1.1 L, Absolute Monocytes 0.4, Absolute Eosinophils 0.1, Absolute Basophils 0 09/04/172148: Urine Color YEL, Urine Clarity CLEAR, Urine pH 6.0, Ur Specific [place] 1.020, Urine Protein TRACE H, Urine Ketones NEG, Urine Nitrite NEG, Urine Bilirubin NEG, Urine Urobilinogen 0.2, Ur Leukocyte Esterase SMALL H, Ur Microscopic SEDIMENT EXAMINED, Urine RBC RARE, Urine WBC 5-10 H, Ur Epithelial Cells MANY H, Urine Bacteria MANY H, Urine Hemoglobin TRACE-INTACT, Urine Glucose NEG Microbiology 09/05 0010 BLOOD: Blood Culture - RECD 09/05 0003 BLOOD: Blood Culture - RECD 09/04 2148 URINE ROUT: Urine Culture - RECD Diagnostic Imaging: Viewed by Me: CT Scan. Discussed w/RAD: CT Scan. Radiology Impression: PATIENT: ESTEFANI ONOFRE PRESENT AGE: 57 PATIENT ACCOUNT NO: [id number] : 56 LOCATION: [facility] ORDERING PHYSICIAN: Mariaelena Ballard MD SERVICE DATE: 09/04/17 EXAM TYPE: CAT - CT ABD & PELVIS W/O IV CONTRAS EXAMINATION: CT ABDOMEN AND PELVIS WITHOUT CONTRAST CLINICAL INFORMATION: Left flank pain, left abdominal pain and dysuria with fever of 103. COMPARISON: CT abdomen and pelvis 04/06/2015. TECHNIQUE: Multidetector volumetric imaging was performed from the superior aspect of the liver through the pubic symphysis. Sagittal and coronal reformatted images were obtained on the technologist's workstation. DLP: 1614.55 mGy-cm FINDINGS: LUNG BASES: The visualized lung bases are unremarkable. LIVER, GALLBLADDER, AND BILIARY TREE: The liver is normal in size, shape, and attenuation. No focal hepatic lesion or biliary ductal dilatation is present. The gallbladder is unremarkable with no evidence of radiopaque gallstones, gallbladder wall thickening, or obvious pericholecystic inflammatory changes. PANCREAS: Unremarkable. SPLEEN: Unremarkable. Splenules are noted. ADRENAL GLANDS: Unremarkable. KIDNEYS AND URETERS: The kidneys are normal in size, shape, and attenuation. No hydronephrosis, hydroureter, or calculi seen. No perinephric stranding. Mildly prominent right extrarenal pelvis which has been seen in the past. BLADDER: Unremarkable. GASTROINTESTINAL TRACT: The small and large bowel are unremarkable. The appendix is unremarkable. ABDOMINAL WALL: No significant hernia is appreciated. LYMPH NODES: Small inguinal nodes are seen. VASCULAR: Minimal aortic calcifications are present. PELVIC VISCERA: The anteverted uterus is present. An abnormal adnexal mass is not present. OSSEOUS STRUCTURES: Marked degenerative changes in the lumbar spine with severe disc space narrowing at L3- L4, L4-L5 and L5-S1. No bony destructive lesions are seen. IMPRESSION: A cause for the patient's left flank and abdominal pain and fever has not been found. DICTATED BY: Monroe Branch MD DATE/TIME DICTATED:09/04/172332 NEGATIVE CHECKER:DESTINEE DATE/TIME TRANSCRIBED:09/04/172332 CONFIDENTIAL, DO NOT COPY WITHOUT APPROPRIATE AUTHORIZATION. <Electronically signed in Other Vendor System> SIGNED BY: Monroe Branch MD 09/04/17 1492 Initial ED EKG: none (Mariaelena Ballard MD) Departure Departure Condition: Stable Referrals: Teena ROMO,Liz Grimes (PCP/Family) Departure Forms: Customer Survey General Discharge Information Prescriptions: Current Visit Scripts Ciprofloxacin HCl (Cipro) 1 TAB PO BID #20 TAB (Mariaelena Ballard MD) Departure Disposition: STILL A PATIENT Clinical Impression Primary Impression: Pyelonephritis Comments 09/05/17 The patient was signed out to me. Recurrent UTIs. 103 fever. Chills. Now after IV fluids and Tylenol she feels much improved. CT scan of the abdomen and pelvis is negative. She did receive IV Rocephin. She will be discharged with Cipro. She was told to return to the emergency department immediately if worse. She has a follow-up appointment with her doctor on WEDNESDAY. (Sage Tellez DO) ED Sepsis Exam Date of Focused Sepsis Exam: 09/04/17 Time of Focused Sepsis Exam: 2316 Sepsis Cardiac Exam: Tachycardia Sepsis Resp Exam: CTA Sepsis Cap Refill Exam: <2 Sec Sepsis Peripheral Pulse Exam: Normal Sepsis Peripheral Pulse Location: Radial Sepsis Skin Color Exam: Normal for Ethnicity Skin Temp/Moisture Exam: Hot/Diaphoretic (Mariaelena Ballard MD)
--- NOTE | 2017-09-04 23:58 | CT SCAN REPORT ---
EXAMINATION: CT ABDOMEN AND PELVIS WITHOUT CONTRAST CLINICAL INFORMATION: Left flank pain, left abdominal pain and dysuria with fever of 103. COMPARISON: CT abdomen and pelvis 04/06/2015. TECHNIQUE: Multidetector volumetric imaging was performed from the superior aspect of the liver through the pubic symphysis. Sagittal and coronal reformatted images were obtained on the technologist's workstation. DLP: 1614.55 mGy-cm FINDINGS: LUNG BASES: The visualized lung bases are unremarkable. LIVER, GALLBLADDER, AND BILIARY TREE: The liver is normal in size, shape, and attenuation. No focal hepatic lesion or biliary ductal dilatation is present. The gallbladder is unremarkable with no evidence of radiopaque gallstones, gallbladder wall thickening, or obvious pericholecystic inflammatory changes. PANCREAS: Unremarkable. SPLEEN: Unremarkable. Splenules are noted. ADRENAL GLANDS: Unremarkable. KIDNEYS AND URETERS: The kidneys are normal in size, shape, and attenuation. No hydronephrosis, hydroureter, or calculi seen. No perinephric stranding. Mildly prominent right extrarenal pelvis which has been seen in the past. BLADDER: Unremarkable. GASTROINTESTINAL TRACT: The small and large bowel are unremarkable. The appendix is unremarkable. ABDOMINAL WALL: No significant hernia is appreciated. LYMPH NODES: Small inguinal nodes are seen. VASCULAR: Minimal aortic calcifications are present. PELVIC VISCERA: The anteverted uterus is present. An abnormal adnexal mass is not present. OSSEOUS STRUCTURES: Marked degenerative changes in the lumbar spine with severe disc space narrowing at L3-L4, L4-L5 and L5-S1. No bony destructive lesions are seen. IMPRESSION: A cause for the patient's left flank and abdominal pain and fever has not been found.
[2017-09-05 00:22] LABS: ABSOLUTE BASOPHIL COUNT 0 /CUMM (0.0-0.2); ABSOLUTE EOSINOPHIL COUNT 0.1 /CUMM (0.0-0.7); ABSOLUTE GRANULOCYTE CT 6.4 /CUMM (1.4-6.5); ABSOLUTE LYMPH COUNT 1.1 /CUMM (1.2-3.4); ABSOLUTE MONOCYTE COUNT 0.4 /CUMM (0.10-0.60); BASOPHIL % 0.3 % (0.0-2.0); EOSINOPHIL % 1.5 % (0-5); GRANULOCYTE % 79.4 % (42.2-75.2); HEMATOCRIT 35.8 % (37-47); MEAN CORPUSCULAR HGB 29.2 PG (27.0-31.0); MEAN CORPUSCULAR HGB CONC 34.2 G/DL (33.0-37.0); MEAN CORPUSCULAR VOLUME 85.4 FL (81.0-99.0); MEAN PLATELET VOLUME 7.3 FL (7.4-10.4); PLATELET COUNT 287 /CUMM (130-400); RBC DISTRIBUTION WIDTH 12.9 % (11.5-14.5); RED BLOOD CELL CT 4.19 /CUMM (4.20-5.40); WHITE BLOOD CELL COUNT 8.1 /CUMM (4.8-10.8)
[2017-09-05 01:22] VITALS: BP 110/54
[2017-09-05] MEDS ORDERED: CIPRO500 M1 PO (03:17)
== END 2017-09-05 03:21 ==
LOC: ERH 21:33
PROVIDERS: Internal Medicine
DX: N12 Tubulo-interstitial nephritis, not specified as acute or chronic (principal)
CPT/HCPCS: 74176; 81001; 87040; 87086; 96374; J0696